=== PATIENT | female | born 1975 | race Caucasian/White ===

== ENCOUNTER 2017-01-07 13:30 | Emergency (ER) | payer BC, OTHER ==
[~2017-01-07] VITALS: Ht 162.6 cm; Wt 74.8 kg
[2017-01-07 14:30] LABS: HEMATOCRIT 46.2 % (34.6-47.8); HEMOGLOBIN 15.8 g/dL (11.7-16.4); WHITE BLOOD COUNT 10.8 x10^3/uL (3.4-10)
[2017-01-07] MEDS ORDERED: SODIUM CHLORIDE 0.9% 1,000ML IVBOLUS ONE (14:30)
[2017-01-07] MEDS ORDERED: ONDANSETRON 2MG/ML, 2ML IVPush ONE (14:30)
[2017-01-07] MEDS ORDERED: SODIUM CHLORIDE FLUSH 10ML SYR IVF ONE (14:30)
[2017-01-07 14:39] LABS: ASPARTATE AMINO TRANSFERASE 12 U/L (15-37); BLOOD UREA NITROGEN 10 mg/dL (7-18)
[2017-01-07] MEDS ORDERED: ONDANSETRON 2MG/ML, 2ML ONE (16:46)
[2017-01-07 16:54] VITALS: BP 120/74
== END 2017-01-07 18:14 | disposition home or self-care (01) ==
LOC: ED 16:22
DX: K29.00 Acute gastritis without bleeding (principal)
CPT/HCPCS: 36415; 76830; 80053; 81001; 83690; 84703; 85025; 96374; 99285; J2405; J7030

== ENCOUNTER 2017-03-16 16:40 | Emergency (ER) | payer BC ==
[~2017-03-16] VITALS: Ht 162.6 cm; Wt 78.3 kg
[2017-03-16] MEDS ORDERED: ONDANSETRON 2MG/ML, 2ML ONE (17:29)
[2017-03-16] MEDS ORDERED: ONDANSETRON 2MG/ML, 2ML IVPush ONE (17:30)
[2017-03-16] MEDS ORDERED: SODIUM CHLORIDE FLUSH 10ML SYR IVF ONE (17:30)
[2017-03-16] MEDS ORDERED: SODIUM CHLORIDE 0.9% 1,000ML IVBOLUS ONE (17:30)
[2017-03-16 17:46] LABS: HEMATOCRIT 41.4 % (34.6-47.8); HEMOGLOBIN 13.9 g/dL (11.7-16.4)
[2017-03-16 17:55] LABS: BLOOD UREA NITROGEN 22 mg/dL (7-18)
[2017-03-16] MEDS ORDERED: LORazepam 2 MG/ML, 1ML IVPush ONE (18:30)
[2017-03-16] MEDS ORDERED: LORazepam 2 MG/ML, 1ML ONE (18:36)
[2017-03-16 19:30] VITALS: BP 122/76
== END 2017-03-16 19:59 | disposition home or self-care (01) ==
LOC: ED 17:27
DX: R30.0 Dysuria (principal); B96.89 Other specified bacterial agents as the cause of diseases classified elsewhere; N76.0 Acute vaginitis; F43.10 Post-traumatic stress disorder, unspecified
CPT/HCPCS: 36415; 80048; 81003; 82040; 83605; 84145; 84703; 85025; 87040; 87210; 87491; 87591; 87808; 96361; 96374; 96375; 99285; J2060; J2405; J7030

== ENCOUNTER 2018-02-21 14:20 | Emergency (ER) | payer BC ==
[~2018-02-21] VITALS: Ht 162.6 cm; Wt 78.9 kg
[2018-02-21 14:47] LABS: BASOPHILS # (AUTO) 0.06 x10^3/uL (0-0.1); BASOPHILS % (AUTO) 1 % (0-1); EOSINOPHILS # (AUTO) 0.21 x10^3/uL (0-0.4); EOSINOPHILS % (AUTO) 3 % (1-7); LYMPHOCYTES # (AUTO) 2.24 x10^3/uL (1-3.4); LYMPHOCYTES % (AUTO) 27 % (22-44); MD NO; MEAN CORPUSCULAR HEMOGLOBIN 31.8 pg (27.0-34.8); MEAN CORPUSCULAR HGB CONC 33.7 g/dL (32.4-35.8); MEAN CORPUSCULAR VOLUME 94.5 fL (80-100); MEAN PLATELET VOLUME 8.5 fL (7.4-10.4); MONOCYTES # (AUTO) 0.66 x10^3/uL (0.2-0.8); MONOCYTES % (AUTO) 8 % (2-9); NEUTROPHILS # (AUTO) 5.25 x10^3/uL (1.8-6.8); NEUTROPHILS % (AUTO) 62 % (42-75); PLATELET COUNT 390 x10^3/uL (130-400); RED BLOOD COUNT 4.31 x10^6/uL (3.82-5.3); RED CELL DISTRIBUTION WIDTH 13.4 % (9.6-15.2)
[2018-02-21 14:57] LABS: ALBUMIN 3.8 g/dL (3.4-5.0); ANION GAP 9 mmol/L (5-15); CALCIUM 8.6 mg/dL (8.5-10.1); CHLORIDE 111 mmol/L (98-107)
[2018-02-21 15:02] LABS: ALANINE AMINOTRANSFERASE 20 U/L (12-78); ALKALINE PHOSPHATASE 59 U/L (45-117); BILIRUBIN,TOTAL 0.5 mg/dL (0.2-1.0); CREATININE 0.81 mg/dL (0.55-1.02); TOTAL PROTEIN 7.1 g/dL (6.4-8.2)
[2018-02-21 15:12] LABS: HCG UR SG 1.032 (1.003-1.030)
[2018-02-21 15:13] LABS: CULTURE INDICATED? YES; MICROSCOPIC INDICATED
[2018-02-21 16:54] VITALS: BP 112/60
== END 2018-02-21 16:56 | disposition home or self-care (01) ==
LOC: ED 15:20
DX: J00 Acute nasopharyngitis [common cold] (principal); N30.90 Cystitis, unspecified without hematuria; F43.10 Post-traumatic stress disorder, unspecified; Z88.5 Allergy status to narcotic agent; Z88.6 Allergy status to analgesic agent
CPT/HCPCS: 36415; 80053; 81001; 81025; 83690; 85025; 87077; 87086; 87186; 99284

== ENCOUNTER 2018-06-27 09:20 | Emergency (ER) | payer BC ==
[~2018-06-27] VITALS: Ht 162.6 cm; Wt 74.1 kg
[2018-06-27] MEDS ORDERED: ONDANSETRON ODT 4 MG ONE (09:38)
[2018-06-27] MEDS ORDERED: ONDANSETRON ODT 4 MG PO ONE (10:00)
[2018-06-27 10:06] LABS: BASOPHILS # (AUTO) 0.09 x10^3/uL (0-0.1); BASOPHILS % (AUTO) 2 % (0-1); EOSINOPHILS # (AUTO) 0.05 x10^3/uL (0-0.4); EOSINOPHILS % (AUTO) 1 % (1-7); LYMPHOCYTES # (AUTO) 1.14 x10^3/uL (1-3.4); LYMPHOCYTES % (AUTO) 20 % (22-44); MD NO; MEAN CORPUSCULAR HEMOGLOBIN 30.7 pg (27.0-34.8); MEAN CORPUSCULAR HGB CONC 33.6 g/dL (32.4-35.8); MEAN CORPUSCULAR VOLUME 91.4 fL (80-100); MEAN PLATELET VOLUME 8.4 fL (7.4-10.4); MONOCYTES # (AUTO) 0.31 x10^3/uL (0.2-0.8); MONOCYTES % (AUTO) 5 % (2-9); NEUTROPHILS # (AUTO) 4.21 x10^3/uL (1.8-6.8); NEUTROPHILS % (AUTO) 73 % (42-75); PLATELET COUNT 392 x10^3/uL (130-400); RED BLOOD COUNT 3.93 x10^6/uL (3.82-5.3); RED CELL DISTRIBUTION WIDTH 13.1 % (9.6-15.2)
[2018-06-27 10:13] LABS: ALANINE AMINOTRANSFERASE 16 U/L (12-78); ALBUMIN 3.7 g/dL (3.4-5.0); ANION GAP 5 mmol/L (5-15); CALCIUM 8.4 mg/dL (8.5-10.1); CHLORIDE 108 mmol/L (98-107); CREATININE 0.88 mg/dL (0.55-1.02)
[2018-06-27 10:17] LABS: ALKALINE PHOSPHATASE 60 U/L (45-117); BILIRUBIN,TOTAL 0.7 mg/dL (0.2-1.0)
--- NOTE | 2018-06-27 11:43 | NUR ---
DISTRICT MANAGER IN TRAINING: TO ROOM FROM [facility]
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
--- NOTE | 2018-06-27 12:07 | NUR ---
lunch rn: PIV PLACED AND IVF STARTED.
[2018-06-27 12:24] LABS: CULTURE INDICATED? YES; MICROSCOPIC INDICATED
[2018-06-27] MEDS ORDERED: SODIUM CHLORIDE 0.9% 1,000ML IVBOLUS ONE (12:30)
[2018-06-27] MEDS ORDERED: BUSP10TA PO (12:50)
[2018-06-27] MEDS ORDERED: FLUO20CA19 PO (12:50)
[2018-06-27] MEDS ORDERED: TRAZ-137 PO (12:50)
--- NOTE | 2018-06-27 12:50 | NUR ---
PIV fluids finished infusing. Disconnected from pt's PIV. Pt states, "I am starting to feel nausesous again."
[2018-06-27] MEDS ORDERED: PROMETHAZINE 25 MG/ML, 1ML ONE (12:53)
[2018-06-27] MEDS ORDERED: PROMETHAZINE 25 MG/ML, 1ML IM ONE (13:00)
[2018-06-27 14:04] VITALS: BP 115/72
--- NOTE | 2018-06-27 14:48 | NUR ---
Patient given discharge instructions and they have confirmed that they understand the instructions. Patient ambulatory with steady gait. Pt left with prescription, discharge paperwork, and all personal belongings.
== END 2018-06-27 14:50 | disposition home or self-care (01) ==
LOC: ED 12:23
DX: R19.7 Diarrhea, unspecified (principal); R11.2 Nausea with vomiting, unspecified
CPT/HCPCS: 36415; 80053; 81001; 83690; 84703; 85025; 87086; 96372; 99283; J2550; J7030; Q0162